=== PATIENT | male | born 1990 ===

== ENCOUNTER 2024-10-20 08:23 | Inpatient (IN) | payer BC ==
[2024-10-20 08:46] LABS: BASOPHILS ABSOLUTE AUTO 0.14 K/uL (0.00-0.10); BASOPHILS PERCENT AUTO 0.5 % (0.1-1.3); BICARBONATE,VENOUS 21.6 mmol/L; CARBOXYHEMOGLOBIN 2.3 % (0.0-1.6); EOSINOPHILS ABSOLUTE AUTO 0.06 K/uL (0.00-0.40); EOSINOPHILS PERCENT AUTO 0.2 % (0.0-5.4); HEMATOCRIT 39.9 % (38.4-49.7); HEMOGLOBIN 14.3 g/dL (12.9-16.9); IMMATURE GRAN ABSOLUTE AUTO 0.74 K/uL (0.00-0.23); IMMATURE GRAN PERCENT AUTO 2.9 % (0.0-0.7); LYMPHOCYTES PERCENT AUTO 3.9 % (11.4-47.7); MEAN CORPUSCULAR HEMOGLOBIN 33.2 pg (31.6-35.5); MEAN CORPUSCULAR HGB CONC 35.8 g/dL (31.6-35.5); MEAN CORPUSCULAR VOLUME 92.6 fL (81.4-99.0); METHEMOGLOBIN 0.7 %; MONOCYTES ABSOLUTE AUTO 1.84 K/uL (0.20-0.90); MONOCYTES PERCENT AUTO 7.2 % (3.3-12.6); NEUTROPHILS ABSOLUTE AUTO 21.92 K/uL (1.0-7.6); NEUTROPHILS PERCENT AUTO 85.3 % (40.0-78.1); O2 SATURATION VENOUS 81.4; PCO2 VENOUS 31.7 mm/Hg; PH,VENOUS 7.449 (7.350-7.450); PLATELET COUNT,PLT 206 K/uL (130-375); PO2 VENOUS 50.1 mm/Hg; RED BLOOD CELL COUNT 4.31 M/uL (4.14-5.76); TOTAL HEMOGLOBIN 14.9 g/dL (13.5-18.0); WHITE BLOOD CELL COUNT,WBC 25.7 K/uL (3.2-11.0)
[2024-10-20] MEDS: Midazolam 1 MG/ML 2 ML SDV IVPUSH ONE (08:46)
[2024-10-20 09:16] LABS: ALANINE AMINOTRANSFERASE,ALT 144 U/L (12-78); ALKALINE PHOSPHATASE 146 U/L (46-116); ASPARTATE AMNIOTRANSFERASE,AST 152 U/L (15-37); BILIRUBIN TOTAL 1.8 mg/dL (0.2-1.0); BLOOD UREA NITROGEN,BUN 19 mg/dL (7-18); CALCIUM 9.7 mg/dL (8.5-10.1); CARBON DIOXIDE,CO2 23 mmol/L (21-32); CHLORIDE,CL 88 mmol/L (100-108); CREATININE 1.4 mg/dL (0.8-1.3); EST CRCL DRUG DOSING (CG) 67.72 mL/min; ESTIMATED GFR 68 mL/min (>60); GLUCOSE RANDOM 138 mg/dL (74-106); POTASSIUM,K 3.1 mmol/L (3.6-5.2); PROTEIN TOTAL,TP 8.2 g/dL (6.4-8.2); SODIUM,NA 129 mmol/L (140-148); TROPONIN I HIGH SENSITIVITY 7.3 pg/mL (<=60.3)
[2024-10-20 09:19] LABS: ANION GAP 21.1 mmol/L (5.0-14.0)
[2024-10-20 09:21] LABS: MAGNESIUM 1.8 mg/dL (1.8-2.4); TSH ULTRASENSITIVE 1.652 uIU/mL (0.358-3.740)
[2024-10-20] MEDS ORDERED: MVI, Adult with Vitamin K 10 ML, Thiamine 100 MG, Folic Acid 1 MG, Magnesium Sulf 1 GM/... IV SCH (09:30)
[2024-10-20] MEDS: LORazepam 2 MG/ML SDV IVPUSH ONE ×2 (09:55→12:29)
[2024-10-20] MEDS: MVI, Adult with Vitamin K 10 ML, Thiamine 100 MG, Folic Acid 1 MG, Magnesium Sulf 1 GM/... IV ONE (09:55)
[2024-10-20 11:47] LABS: APPEARANCE,URINE SLIGHTLY CLOUDY (CLEAR); BILIRUBIN,URINE NEGATIVE (NEGATIVE); COLOR,URINE YELLOW (YELLOW); GLUCOSE,URINE NEGATIVE (NEGATIVE); KETONES,URINE NEGATIVE (NEGATIVE); LEUKOCYTE ESTERASE,URINE NEGATIVE (NEGATIVE); NITRITE,URINE NEGATIVE (NEGATIVE); OCCULT BLOOD,URINE NEGATIVE (NEGATIVE); PH,URINE 5.5 (5.0-8.0); PROTEIN,URINE 100 mg/dL (NEGATIVE); UROBILINOGEN,URINE 0.2 EU/dL (0.2-1.0)
[2024-10-20 12:00] LABS: AMPHETAMINES SCREEN, URINE NEGATIVE (NEGATIVE); BARBITURATE SCREEN,URINE NEGATIVE (NEGATIVE); BENZODIAZEPINES SCREEN,URINE NEGATIVE (NEGATIVE); METHADONE SCREEN, URINE NEGATIVE (NEGATIVE); METHAMPHETAMINES SCREEN, URINE NEGATIVE (NEGATIVE); OXYCODONE SCREEN,URINE NEGATIVE (NEGATIVE); PROPOXYPHENE SCREEN,URINE NEGATIVE (NEGATIVE); THC SCREEN,URINE 50 NG/ML NEGATIVE (NEGATIVE)
[2024-10-20 12:01] LABS: AMORPHOUS SEDIMENT,URINE MANY; BACTERIA,URINE FEW; EPITHELIAL CELLS,URINE NOT SEEN; MUCUS,URINE MODERATE; RBC,URINE 0-5 (0-5)
[2024-10-20 12:46] LABS: CREATININE 0.9 mg/dL (0.8-1.3); EST CRCL DRUG DOSING (CG) 105.35 mL/min; POTASSIUM,K 3.1 mmol/L (3.6-5.2)
[2024-10-20 12:47] LABS: ANION GAP 18.1 mmol/L (5.0-14.0)
[2024-10-20] MEDS: Potassium Chloride 10 MEQ Cap.ER PO ONE (13:09)
[2024-10-20] MEDS ORDERED: Ondansetron 4 MG/2 ML SDV IV PRN (14:48)
[2024-10-20] MEDS ORDERED: Sennosides/Docusate Sodium 50-8.6 MG Tab PO PRN (14:48)
[2024-10-20] MEDS ORDERED: Ondansetron 4 MG Tab.DIS PO PRN (14:48)
[2024-10-20] MEDS ORDERED: Magnesium Hydroxide 400 MG/5 ML Susp 30 ML Cup PO PRN (14:48)
[2024-10-20] MEDS: LORazepam 2 MG/ML SDV IV SCH (14:55)
[2024-10-20] MEDS: LORazepam 1 MG Tab PO SCH (14:55)
[2024-10-20] MEDS: Sodium Chloride 0.9% 1,000 ML IV SCH (15:17)
[2024-10-20] MEDS: Thiamine 100 MG in Sodium Chloride 0.9% 100 ML IV ONE (15:43)
[2024-10-20] MEDS: Nicotine 21 MG/24 Hr Patch TRDERM PRN (15:44)
[2024-10-20] MEDS: Potassium Chloride 20 MEQ Tab.ER PO ONE (15:45)
[2024-10-20] MEDS ORDERED: Thiamine 100 MG in Sodium Chloride 0.9% 50 ML IV ONE (16:00)
[2024-10-20] MEDS: PHENobarbitaL sodium 260 MG in Sodium Chloride 0.9% 100 ML IV ONE (16:02)
[2024-10-20] MEDS: Gabapentin 100 MG Cap PO SCH (16:06)
[2024-10-20] MEDS: Haloperidol Lactate 5 MG/ML SDV IVPUSH ONE (16:22)
[2024-10-20] MEDS: Haloperidol Lactate 5 MG/ML SDV ONE (16:54)
[2024-10-20] MEDS: PHENobarbital Sodium 65 MG/ML SDV IVPUSH PRN (19:38)
[2024-10-20] MEDS: Melatonin 3 MG Tab PO SCH (22:00)
[2024-10-20] MEDS: Haloperidol Lactate 5 MG/ML SDV IVPUSH PRN (22:24)
[2024-10-21] MEDS ORDERED: Naloxone 0.4 MG/ML SDV IVPUSH PRN (04:18)
[2024-10-21] MEDS ORDERED: Haloperidol Lactate 5 MG/ML SDV IVPUSH PRN (04:19)
[2024-10-21] MEDS: fentaNYL 50 MCG/ML SDV IVPUSH PRN ×2 (04:25→20:25)
[2024-10-21 05:10] LABS: HEMATOCRIT 35.5 % (38.4-49.7); MEAN CORPUSCULAR HEMOGLOBIN 33.1 pg (31.6-35.5); MEAN CORPUSCULAR HGB CONC 33.8 g/dL (31.6-35.5); MEAN CORPUSCULAR VOLUME 97.8 fL (81.4-99.0); RED BLOOD CELL COUNT 3.63 M/uL (4.14-5.76); WHITE BLOOD CELL COUNT,WBC 17.9 K/uL (3.2-11.0)
[2024-10-21 05:22] LABS: PROTHROMBIN TIME 10.4 sec (9.2-10.6)
[2024-10-21 05:26] LABS: A/G RATIO 0.8 (1.2-2.2); ALANINE AMINOTRANSFERASE,ALT 107 U/L (12-78); ALKALINE PHOSPHATASE 125 U/L (46-116); ASPARTATE AMNIOTRANSFERASE,AST 102 U/L (15-37); BLOOD UREA NITROGEN,BUN 15 mg/dL (7-18); CALCIUM 8.3 mg/dL (8.5-10.1); CARBON DIOXIDE,CO2 22 mmol/L (21-32); CHLORIDE,CL 99 mmol/L (100-108); CREATININE 0.8 mg/dL (0.8-1.3); EST CRCL DRUG DOSING (CG) 118.52 mL/min; ESTIMATED GFR 120 mL/min (>60); GLUCOSE RANDOM 102 mg/dL (74-106); POTASSIUM,K 3.4 mmol/L (3.6-5.2); PROTEIN TOTAL,TP 6.9 g/dL (6.4-8.2); SODIUM,NA 137 mmol/L (140-148)
[2024-10-21 05:28] LABS: ANION GAP 19.4 mmol/L (5.0-14.0)
[2024-10-21] MEDS ORDERED: Heparin Sodium 5,000 Units/ML Vial ONE (06:15)
[2024-10-21] MEDS: propofoL 1,000 MG/100 ML 100 ML IV SCH (06:43)
[2024-10-21] MEDS: Heparin Sodium 5,000 UNITS in Sodium Chloride 0.9% 500 ML IV SCH (06:50)
[2024-10-21] MEDS: Midazolam 1 MG/ML 2 ML SDV IVPUSH PRN ×2 (07:03→22:16)
[2024-10-21] MEDS ORDERED: Pantoprazole 40 MG Tab.CR PO SCH (07:30)
[2024-10-21] MEDS ORDERED: Propofol 200 MG/20 ML SDV ONE (07:40)
[2024-10-21] MEDS ORDERED: Succinylcholine 200 MG/10 ML MDV ONE (07:40)
[2024-10-21 08:03] LABS: BASE EXCESS ARTERIAL -3.3 mm/L; BICARBONATE,ARTERIAL 20.1 mmol/L (22.0-26.0); METHEMOGLOBIN 0.7 %; O2 SATURATION ARTERIAL 99.1 % (95.0-98.0); OXYHEMOGLOBIN 96.4 %; PCO2 ARTERIAL 32.4 mmHg (35.0-42.0); TOTAL HEMOGLOBIN 12.1 g/dL (13.5-18.0)
[2024-10-21] MEDS: propofoL 1,000 MG/100 ML 100 ML ONE (08:15)
[2024-10-21] MEDS: Thiamine 200 MG/2 ML MDV IVPUSH SCH (08:54)
[2024-10-21] MEDS: Pantoprazole 40 MG Vial IVPUSH SCH (08:54)
[2024-10-21] MEDS: Dextrose 5%-0.9% NaCl with KCl 1,000 ML IV SCH (09:00)
[2024-10-21] MEDS ORDERED: Folic Acid 1 MG Tab PO SCH (09:00)
[2024-10-21] MEDS ORDERED: Metoprolol Succinate 25 MG Tab.ER PO SCH (09:00)
[2024-10-21] MEDS ORDERED: Thiamine 100 MG Tab PO SCH (09:00)
[2024-10-22 04:20] LABS: BASE EXCESS ARTERIAL -0.2 mm/L; BICARBONATE,ARTERIAL 22.1 mmol/L (22.0-26.0); CARBOXYHEMOGLOBIN 1.8 % (0.0-1.6); METHEMOGLOBIN 0.9 %; O2 SATURATION ARTERIAL 94.8 % (95.0-98.0); OXYHEMOGLOBIN 92.2 %; PCO2 ARTERIAL 29.6 mmHg (35.0-42.0); TOTAL HEMOGLOBIN 11.6 g/dL (13.5-18.0)
[2024-10-22 04:22] LABS: HEMATOCRIT 33.2 % (38.4-49.7); HEMOGLOBIN 10.9 g/dL (12.9-16.9); MEAN CORPUSCULAR HEMOGLOBIN 32.3 pg (31.6-35.5); MEAN CORPUSCULAR HGB CONC 32.8 g/dL (31.6-35.5); MEAN CORPUSCULAR VOLUME 98.5 fL (81.4-99.0); RED BLOOD CELL COUNT 3.37 M/uL (4.14-5.76)
[2024-10-22] MEDS: Doxycycline 100 MG in Sodium Chloride 0.9% 100 ML IV SCH (04:29)
[2024-10-22 04:44] LABS: A/G RATIO 0.6 (1.2-2.2); ALANINE AMINOTRANSFERASE,ALT 76 U/L (12-78); ALBUMIN 2.5 g/dL (3.4-5.0); ALKALINE PHOSPHATASE 132 U/L (46-116); ASPARTATE AMNIOTRANSFERASE,AST 66 U/L (15-37); BILIRUBIN TOTAL 0.8 mg/dL (0.2-1.0); BLOOD UREA NITROGEN,BUN 9 mg/dL (7-18); CALCIUM 8.2 mg/dL (8.5-10.1); CARBON DIOXIDE,CO2 22 mmol/L (21-32); CHLORIDE,CL 105 mmol/L (100-108); CREATININE 0.7 mg/dL (0.8-1.3); EST CRCL DRUG DOSING (CG) 136.14 mL/min; ESTIMATED GFR 125 mL/min (>60); GLUCOSE RANDOM 154 mg/dL (74-106); MAGNESIUM 1.6 mg/dL (1.8-2.4); POTASSIUM,K 3.3 mmol/L (3.6-5.2); PROTEIN TOTAL,TP 6.4 g/dL (6.4-8.2); SODIUM,NA 140 mmol/L (140-148)
[2024-10-22 04:47] LABS: ANION GAP 16.3 mmol/L (5.0-14.0)
[2024-10-22] MEDS: Ketorolac 30 MG/ML SDV IVPUSH PRN (06:26)
[2024-10-22] MEDS: Potassium Chloride 10 MEQ in Premix Bag 1 BAG IV SCH ×2 (08:44→16:45)
[2024-10-22] MEDS: Magnesium Sulfate 2 GM/50 mL 2 GM in Premix Bag 1 BAG IV SCH (09:55)
[2024-10-22] MEDS: LORazepam 2 MG/ML SDV IVPUSH PRN (12:01)
[2024-10-22] MEDS: fentaNYL 50 MCG/ML SDV IVPUSH PRN (12:50)
[2024-10-22] MEDS: Sodium Chloride 0.9% 1,000 ML IV SCH (15:22)
[2024-10-22 15:59] LABS: CARBOXYHEMOGLOBIN 1.6 % (0.0-1.6); METHEMOGLOBIN 0.6 %; O2 SATURATION ARTERIAL 98.2 % (95.0-98.0); PCO2 ARTERIAL 31.3 mmHg (35.0-42.0); PO2 ARTERIAL 95.6 mmHg (75.0-100.0); TOTAL HEMOGLOBIN 10.9 g/dL (13.5-18.0)
[2024-10-23 05:18] LABS: HEMATOCRIT 34.5 % (38.4-49.7); HEMOGLOBIN 11.3 g/dL (12.9-16.9); MEAN CORPUSCULAR HEMOGLOBIN 32.7 pg (31.6-35.5); MEAN CORPUSCULAR HGB CONC 32.8 g/dL (31.6-35.5); MEAN CORPUSCULAR VOLUME 99.7 fL (81.4-99.0); RED BLOOD CELL COUNT 3.46 M/uL (4.14-5.76); WHITE BLOOD CELL COUNT,WBC 17.9 K/uL (3.2-11.0)
[2024-10-23 05:19] LABS: BASE EXCESS ARTERIAL -4.8 mm/L; BICARBONATE,ARTERIAL 18.2 mmol/L (22.0-26.0); CARBOXYHEMOGLOBIN 1.9 % (0.0-1.6); METHEMOGLOBIN 0.8 %; OXYHEMOGLOBIN 93.4 %; PCO2 ARTERIAL 28.7 mmHg (35.0-42.0); TOTAL HEMOGLOBIN 11.8 g/dL (13.5-18.0)
[2024-10-23 05:47] LABS: A/G RATIO 0.5 (1.2-2.2); ALANINE AMINOTRANSFERASE,ALT 85 U/L (12-78); ALBUMIN 2.2 g/dL (3.4-5.0); ALKALINE PHOSPHATASE 158 U/L (46-116); ASPARTATE AMNIOTRANSFERASE,AST 97 U/L (15-37); BILIRUBIN TOTAL 1.2 mg/dL (0.2-1.0); BLOOD UREA NITROGEN,BUN 8 mg/dL (7-18); CARBON DIOXIDE,CO2 19 mmol/L (21-32); CHLORIDE,CL 108 mmol/L (100-108); CREATININE 0.6 mg/dL (0.8-1.3); EST CRCL DRUG DOSING (CG) 158.83 mL/min; ESTIMATED GFR 131 mL/min (>60); GLUCOSE RANDOM 136 mg/dL (74-106); PROTEIN TOTAL,TP 6.3 g/dL (6.4-8.2); SODIUM,NA 141 mmol/L (140-148)
[2024-10-23] MEDS: Furosemide 40 MG/4 ML VIAL IVPUSH ONE (09:36)
[2024-10-23] MEDS: Dextrose 5%-0.9% NaCl with KCl 1,000 ML IV SCH (15:20)
[2024-10-23 15:25] LABS: BASE EXCESS ARTERIAL -3.7 mm/L; BICARBONATE,ARTERIAL 19.2 mmol/L (22.0-26.0); CARBOXYHEMOGLOBIN 1.8 % (0.0-1.6); METHEMOGLOBIN 0.4 %; O2 SATURATION ARTERIAL 97.9 % (95.0-98.0); OXYHEMOGLOBIN 95.7 %; PCO2 ARTERIAL 29.2 mmHg (35.0-42.0); PO2 ARTERIAL 93.8 mmHg (75.0-100.0)
[2024-10-23] MEDS: Potassium Chloride 10 MEQ in Premix Bag 1 BAG IV SCH (16:49)
[2024-10-23] MEDS: Heparin Sodium 5,000 UNITS in Sodium Chloride 0.9% 500 ML IV SCH (19:11)
[2024-10-24 05:37] LABS: BASE EXCESS ARTERIAL -4.3 mm/L; METHEMOGLOBIN 0.8 %; O2 SATURATION ARTERIAL 98.2 % (95.0-98.0); OXYHEMOGLOBIN 95.5 %; PCO2 ARTERIAL 30.5 mmHg (35.0-42.0); PO2 ARTERIAL 99.5 mmHg (75.0-100.0); TOTAL HEMOGLOBIN 10.9 g/dL (13.5-18.0)
[2024-10-24 05:38] LABS: HEMATOCRIT 32.1 % (38.4-49.7); HEMOGLOBIN 10.4 g/dL (12.9-16.9); MEAN CORPUSCULAR HEMOGLOBIN 32.4 pg (31.6-35.5); MEAN CORPUSCULAR HGB CONC 32.4 g/dL (31.6-35.5); RED BLOOD CELL COUNT 3.21 M/uL (4.14-5.76); WHITE BLOOD CELL COUNT,WBC 16.3 K/uL (3.2-11.0)
[2024-10-24 06:02] LABS: A/G RATIO 0.5 (1.2-2.2); ALANINE AMINOTRANSFERASE,ALT 74 U/L (12-78); ALBUMIN 1.9 g/dL (3.4-5.0); ALKALINE PHOSPHATASE 155 U/L (46-116); ASPARTATE AMNIOTRANSFERASE,AST 78 U/L (15-37); BILIRUBIN TOTAL 0.7 mg/dL (0.2-1.0); BLOOD UREA NITROGEN,BUN 9 mg/dL (7-18); CALCIUM 8.1 mg/dL (8.5-10.1); CARBON DIOXIDE,CO2 19 mmol/L (21-32); CHLORIDE,CL 110 mmol/L (100-108); CREATININE 0.6 mg/dL (0.8-1.3); EST CRCL DRUG DOSING (CG) 158.83 mL/min; ESTIMATED GFR 131 mL/min (>60); GLUCOSE RANDOM 99 mg/dL (74-106); POTASSIUM,K 3.6 mmol/L (3.6-5.2); PROTEIN TOTAL,TP 5.9 g/dL (6.4-8.2); SODIUM,NA 142 mmol/L (140-148)
[2024-10-24 06:03] LABS: ANION GAP 16.6 mmol/L (5.0-14.0)
[2024-10-24] MEDS: Potassium Chloride 10 MEQ in Premix Bag 1 BAG IV SCH (08:24)
[2024-10-24] MEDS: Furosemide 20 MG/2 ML VIAL IVPUSH ONE (13:40)
[2024-10-24] MEDS: Ampicillin/Sulbactam Na 1.5 GM in Sodium Chloride 0.9% 50 ML IV SCH (14:09)
[2024-10-24 17:20] LABS: ANION GAP 11.7 mmol/L (5.0-14.0); CALCIUM 8.7 mg/dL (8.5-10.1); CREATININE 0.5 mg/dL (0.8-1.3); EST CRCL DRUG DOSING (CG) 190.59 mL/min; POTASSIUM,K 3.6 mmol/L (3.6-5.2)
[2024-10-24] MEDS: Metoprolol Tartrate 25 MG Tab NGTUBE SCH (20:31)
[2024-10-25 05:51] LABS: BASE EXCESS ARTERIAL -1.7 mm/L; BICARBONATE,ARTERIAL 21.2 mmol/L (22.0-26.0); CARBOXYHEMOGLOBIN 1.8 % (0.0-1.6); METHEMOGLOBIN 0.8 %; O2 SATURATION ARTERIAL 97.7 % (95.0-98.0); OXYHEMOGLOBIN 95.2 %; PCO2 ARTERIAL 31.5 mmHg (35.0-42.0); PO2 ARTERIAL 94.1 mmHg (75.0-100.0); TOTAL HEMOGLOBIN 11.5 g/dL (13.5-18.0)
[2024-10-25 05:55] LABS: HEMATOCRIT 32.5 % (38.4-49.7); HEMOGLOBIN 10.9 g/dL (12.9-16.9); MEAN CORPUSCULAR HEMOGLOBIN 32.6 pg (31.6-35.5); MEAN CORPUSCULAR HGB CONC 33.5 g/dL (31.6-35.5); MEAN CORPUSCULAR VOLUME 97.3 fL (81.4-99.0); RED BLOOD CELL COUNT 3.34 M/uL (4.14-5.76); WHITE BLOOD CELL COUNT,WBC 14.6 K/uL (3.2-11.0)
[2024-10-25 06:16] LABS: A/G RATIO 0.5 (1.2-2.2); ALANINE AMINOTRANSFERASE,ALT 91 U/L (12-78); ALBUMIN 1.9 g/dL (3.4-5.0); ALKALINE PHOSPHATASE 219 U/L (46-116); ASPARTATE AMNIOTRANSFERASE,AST 125 U/L (15-37); BILIRUBIN TOTAL 0.7 mg/dL (0.2-1.0); BLOOD UREA NITROGEN,BUN 8 mg/dL (7-18); CALCIUM 8.6 mg/dL (8.5-10.1); CARBON DIOXIDE,CO2 22 mmol/L (21-32); CHLORIDE,CL 107 mmol/L (100-108); CREATINE KINASE,CK 69 U/L (39-308); CREATININE 0.5 mg/dL (0.8-1.3); EST CRCL DRUG DOSING (CG) 190.59 mL/min; ESTIMATED GFR 138 mL/min (>60); GLUCOSE RANDOM 144 mg/dL (74-106); MAGNESIUM 1.2 mg/dL (1.8-2.4); POTASSIUM,K 3.5 mmol/L (3.6-5.2); PROTEIN TOTAL,TP 6.1 g/dL (6.4-8.2); SODIUM,NA 141 mmol/L (140-148)
[2024-10-25 06:18] LABS: ANION GAP 15.5 mmol/L (5.0-14.0)
[2024-10-25] MEDS: DULoxetine 20 MG Cap PO SCH (08:17)
[2024-10-25] MEDS ORDERED: Furosemide 40 MG/4 ML VIAL IVPUSH ONE (08:19)
[2024-10-25] MEDS: Magnesium Sulfate 2 GM/50 mL 2 GM in Premix Bag 1 BAG IV SCH (09:07)
[2024-10-25] MEDS: Furosemide 20 MG/2 ML VIAL IVPUSH ONE ×2 (09:07→17:41)
[2024-10-25] MEDS: Magnesium Oxide 400 MG Tab NGTUBE SCH (09:07)
[2024-10-25] MEDS: Potassium Chloride 10 MEQ in Premix Bag 1 BAG IV SCH ×2 (09:36→17:42)
[2024-10-25 16:54] LABS: BASE EXCESS ARTERIAL -0.4 mm/L; BICARBONATE,ARTERIAL 23.2 mmol/L (22.0-26.0); CARBOXYHEMOGLOBIN 1.4 % (0.0-1.6); METHEMOGLOBIN 0.7 %; O2 SATURATION ARTERIAL 95.3 % (95.0-98.0); OXYHEMOGLOBIN 93.3 %; PCO2 ARTERIAL 36.2 mmHg (35.0-42.0); PO2 ARTERIAL 79.8 mmHg (75.0-100.0); TOTAL HEMOGLOBIN 11.5 g/dL (13.5-18.0)
[2024-10-25 17:12] LABS: POTASSIUM,K 3.6 mmol/L (3.6-5.2)
[2024-10-25 17:13] LABS: ANION GAP 12.7 mmol/L (5.0-14.0); CALCIUM 9.2 mg/dL (8.5-10.1); CREATININE 0.4 mg/dL (0.8-1.3); EST CRCL DRUG DOSING (CG) 238.24 mL/min
[2024-10-26 05:59] LABS: HEMATOCRIT 33.2 % (38.4-49.7); HEMOGLOBIN 11.1 g/dL (12.9-16.9); MEAN CORPUSCULAR HEMOGLOBIN 32.6 pg (31.6-35.5); MEAN CORPUSCULAR HGB CONC 33.4 g/dL (31.6-35.5); MEAN CORPUSCULAR VOLUME 97.4 fL (81.4-99.0); RED BLOOD CELL COUNT 3.41 M/uL (4.14-5.76); WHITE BLOOD CELL COUNT,WBC 18.9 K/uL (3.2-11.0)
[2024-10-26 06:00] LABS: BASE EXCESS ARTERIAL 0.2 mm/L; BICARBONATE,ARTERIAL 23.1 mmol/L (22.0-26.0); CARBOXYHEMOGLOBIN 2.8 % (0.0-1.6); METHEMOGLOBIN 0.8 %; O2 SATURATION ARTERIAL 98.6 % (95.0-98.0); OXYHEMOGLOBIN 95.1 %; TOTAL HEMOGLOBIN 11.5 g/dL (13.5-18.0)
[2024-10-26 06:22] LABS: A/G RATIO 0.5 (1.2-2.2); ALANINE AMINOTRANSFERASE,ALT 94 U/L (12-78); ALBUMIN 1.9 g/dL (3.4-5.0); ALKALINE PHOSPHATASE 223 U/L (46-116); ASPARTATE AMNIOTRANSFERASE,AST 102 U/L (15-37); BILIRUBIN TOTAL 0.6 mg/dL (0.2-1.0); BLOOD UREA NITROGEN,BUN 9 mg/dL (7-18); CALCIUM 8.8 mg/dL (8.5-10.1); CARBON DIOXIDE,CO2 23 mmol/L (21-32); CHLORIDE,CL 104 mmol/L (100-108); CREATININE 0.5 mg/dL (0.8-1.3); EST CRCL DRUG DOSING (CG) 190.59 mL/min; ESTIMATED GFR 138 mL/min (>60); GLUCOSE RANDOM 147 mg/dL (74-106); MAGNESIUM 1.6 mg/dL (1.8-2.4); SODIUM,NA 138 mmol/L (140-148)
[2024-10-26] MEDS: Furosemide 20 MG/2 ML VIAL IVPUSH ONE ×2 (08:44→20:11)
[2024-10-26] MEDS: Magnesium Sulfate 2 GM/50 mL 2 GM in Premix Bag 1 BAG IV SCH (09:10)
[2024-10-26] MEDS: VANCOmycin 2 GM in Sodium Chloride 0.9% 500 ML IV ONE (10:32)
[2024-10-26 16:56] LABS: BASE EXCESS ARTERIAL 1.4 mm/L; BICARBONATE,ARTERIAL 24.1 mmol/L (22.0-26.0); CARBOXYHEMOGLOBIN 1.4 % (0.0-1.6); METHEMOGLOBIN 0.7 %; O2 SATURATION ARTERIAL 94.9 % (95.0-98.0); OXYHEMOGLOBIN 92.9 %; PCO2 ARTERIAL 32.4 mmHg (35.0-42.0); PO2 ARTERIAL 73.3 mmHg (75.0-100.0); TOTAL HEMOGLOBIN 11.5 g/dL (13.5-18.0)
[2024-10-26 17:12] LABS: CREATININE 0.5 mg/dL (0.8-1.3); EST CRCL DRUG DOSING (CG) 190.59 mL/min; POTASSIUM,K 3.9 mmol/L (3.6-5.2)
[2024-10-26 17:13] LABS: ANION GAP 14.9 mmol/L (5.0-14.0)
[2024-10-26] MEDS: Heparin Sodium 5,000 UNITS in Sodium Chloride 0.9% 500 ML IV SCH (17:46)
[2024-10-26] MEDS: VANCOmycin 1.25 GM in Sodium Chloride 0.9% 250 ML IV SCH (17:46)
[2024-10-26] MEDS ORDERED: Furosemide 40 MG/4 ML VIAL IVPUSH ONE (20:00)
[2024-10-27 05:43] LABS: HEMATOCRIT 31.6 % (38.4-49.7); HEMOGLOBIN 10.6 g/dL (12.9-16.9); MEAN CORPUSCULAR HEMOGLOBIN 32.5 pg (31.6-35.5); MEAN CORPUSCULAR HGB CONC 33.5 g/dL (31.6-35.5); MEAN CORPUSCULAR VOLUME 96.9 fL (81.4-99.0); RED BLOOD CELL COUNT 3.26 M/uL (4.14-5.76); WHITE BLOOD CELL COUNT,WBC 20.6 K/uL (3.2-11.0)
[2024-10-27 05:44] LABS: BASE EXCESS ARTERIAL 3.3 mm/L; BICARBONATE,ARTERIAL 25.8 mmol/L (22.0-26.0); CARBOXYHEMOGLOBIN 2.4 % (0.0-1.6); METHEMOGLOBIN 0.8 %; O2 SATURATION ARTERIAL 97.1 % (95.0-98.0); PCO2 ARTERIAL 32.9 mmHg (35.0-42.0); PO2 ARTERIAL 86.9 mmHg (75.0-100.0); TOTAL HEMOGLOBIN 11.2 g/dL (13.5-18.0)
[2024-10-27 06:04] LABS: A/G RATIO 0.5 (1.2-2.2); ALANINE AMINOTRANSFERASE,ALT 70 U/L (12-78); ALBUMIN 1.9 g/dL (3.4-5.0); ALKALINE PHOSPHATASE 219 U/L (46-116); ANION GAP 12.3 mmol/L (5.0-14.0); ASPARTATE AMNIOTRANSFERASE,AST 53 U/L (15-37); BILIRUBIN TOTAL 0.4 mg/dL (0.2-1.0); BLOOD UREA NITROGEN,BUN 8 mg/dL (7-18); CALCIUM 8.8 mg/dL (8.5-10.1); CARBON DIOXIDE,CO2 26 mmol/L (21-32); CHLORIDE,CL 103 mmol/L (100-108); CREATININE 0.5 mg/dL (0.8-1.3); EST CRCL DRUG DOSING (CG) 190.59 mL/min; ESTIMATED GFR 138 mL/min (>60); GLUCOSE RANDOM 157 mg/dL (74-106); MAGNESIUM 1.4 mg/dL (1.8-2.4); POTASSIUM,K 3.7 mmol/L (3.6-5.2); PROTEIN TOTAL,TP 6.1 g/dL (6.4-8.2); SODIUM,NA 141 mmol/L (140-148); VANCOMYCIN RANDOM 26.1 ug/mL (0.0-50.0)
[2024-10-27] MEDS: Magnesium Sulfate 2 GM/50 mL 2 GM in Premix Bag 1 BAG IV SCH (08:53)
[2024-10-27] MEDS ORDERED: Sodium Chloride 0.9% 10 ML Syringe IV PRN (09:36)
[2024-10-27] MEDS: Furosemide 20 MG/2 ML VIAL IVPUSH ONE (09:52)
[2024-10-27] MEDS: Sodium Chloride 0.9% 10 ML Syringe FLUSH ONE (10:23)
[2024-10-27] MEDS: LORazepam 1 MG Tab NGTUBE PRN (12:43)
[2024-10-27] MEDS: Iopamidol 755 Mg/ML 100 ML Bottle IV SCH (12:55)
[2024-10-27] MEDS: Sodium Chloride 0.9% 80 ML IV SCH (12:57)
[2024-10-27] MEDS: metroNIDAZOLE/Normal Saline 500 MG in Premix Bag 1 BAG IV SCH (14:58)
[2024-10-27] MEDS: Furosemide 40 MG/4 ML VIAL IVPUSH ONE (15:05)
[2024-10-27] MEDS: Levofloxacin/Dextrose 5%-Water 750 MG in Premix Bag 1 BAG IV SCH (16:40)
[2024-10-27] MEDS: Enoxaparin 40 MG/0.4 ML Syringe SUBCUT SCH (16:42)
[2024-10-27 17:01] LABS: BASE EXCESS ARTERIAL 5.8 mm/L; BICARBONATE,ARTERIAL 28.6 mmol/L (22.0-26.0); CARBOXYHEMOGLOBIN 2.1 % (0.0-1.6); METHEMOGLOBIN 0.6 %; O2 SATURATION ARTERIAL 97.2 % (95.0-98.0); OXYHEMOGLOBIN 94.6 %; PCO2 ARTERIAL 35.6 mmHg (35.0-42.0); PO2 ARTERIAL 89.5 mmHg (75.0-100.0); TOTAL HEMOGLOBIN 11.9 g/dL (13.5-18.0)
[2024-10-27 17:21] LABS: CALCIUM 9.3 mg/dL (8.5-10.1); CREATININE 0.5 mg/dL (0.8-1.3); EST CRCL DRUG DOSING (CG) 190.59 mL/min; POTASSIUM,K 3.5 mmol/L (3.6-5.2)
[2024-10-27 17:25] LABS: ANION GAP 14.5 mmol/L (5.0-14.0)
[2024-10-27] MEDS: Linezolid 600 MG/300 ML 600 MG in Premix Bag 1 BAG IV SCH (18:04)
[2024-10-28 05:56] LABS: BASE EXCESS ARTERIAL 4.7 mm/L; BICARBONATE,ARTERIAL 27.6 mmol/L (22.0-26.0); CARBOXYHEMOGLOBIN 1.9 % (0.0-1.6); METHEMOGLOBIN 0.7 %; O2 SATURATION ARTERIAL 96.1 % (95.0-98.0); OXYHEMOGLOBIN 93.6 %; PCO2 ARTERIAL 35.6 mmHg (35.0-42.0); PO2 ARTERIAL 83.3 mmHg (75.0-100.0); TOTAL HEMOGLOBIN 11.1 g/dL (13.5-18.0)
[2024-10-28 05:58] LABS: HEMATOCRIT 31.8 % (38.4-49.7); HEMOGLOBIN 10.6 g/dL (12.9-16.9); MEAN CORPUSCULAR HEMOGLOBIN 32.2 pg (31.6-35.5); MEAN CORPUSCULAR HGB CONC 33.3 g/dL (31.6-35.5); MEAN CORPUSCULAR VOLUME 96.7 fL (81.4-99.0); RED BLOOD CELL COUNT 3.29 M/uL (4.14-5.76)
[2024-10-28 06:18] LABS: A/G RATIO 0.5 (1.2-2.2); ALANINE AMINOTRANSFERASE,ALT 53 U/L (12-78); ALKALINE PHOSPHATASE 193 U/L (46-116); ASPARTATE AMNIOTRANSFERASE,AST 40 U/L (15-37); BILIRUBIN TOTAL 0.4 mg/dL (0.2-1.0); BLOOD UREA NITROGEN,BUN 9 mg/dL (7-18); CARBON DIOXIDE,CO2 29 mmol/L (21-32); CHLORIDE,CL 101 mmol/L (100-108); CREATININE 0.5 mg/dL (0.8-1.3); EST CRCL DRUG DOSING (CG) 190.59 mL/min; ESTIMATED GFR 138 mL/min (>60); GLUCOSE RANDOM 163 mg/dL (74-106); MAGNESIUM 1.6 mg/dL (1.8-2.4); POTASSIUM,K 3.8 mmol/L (3.6-5.2); PROTEIN TOTAL,TP 6.3 g/dL (6.4-8.2); SODIUM,NA 138 mmol/L (140-148)
[2024-10-28 06:25] LABS: ANION GAP 11.8 mmol/L (5.0-14.0)
[2024-10-28] MEDS: Thiamine 100 MG Tab NGTUBE SCH (08:12)
[2024-10-28] MEDS: Folic Acid 1 MG Tab NGTUBE SCH (08:12)
[2024-10-28] MEDS: Potassium Chloride 20 MEQ Tab.ER PO ONE (08:19)
[2024-10-28] MEDS ORDERED: Thiamine 200 MG/2 ML MDV IVPUSH SCH (09:00)
[2024-10-28] MEDS: Magnesium Sulfate 2 GM/50 mL 2 GM in Premix Bag 1 BAG IV SCH (09:23)
[2024-10-28 13:07] LABS: BASE EXCESS ARTERIAL 3.2 mm/L; BICARBONATE,ARTERIAL 25.9 mmol/L (22.0-26.0); METHEMOGLOBIN 0.7 %; OXYHEMOGLOBIN 95.4 %; PO2 ARTERIAL 99.4 mmHg (75.0-100.0); TOTAL HEMOGLOBIN 12.6 g/dL (13.5-18.0)
[2024-10-28] MEDS ORDERED: LORazepam 1 MG Tab NGTUBE PRN (13:33)
[2024-10-28] MEDS: Furosemide 40 MG/4 ML VIAL IVPUSH ONE (13:52)
[2024-10-28] MEDS ORDERED: LORazepam 1 MG Tab PO PRN (14:35)
[2024-10-28] MEDS: LORazepam 2 MG/ML SDV IVPUSH PRN ×2 (14:36→17:46)
[2024-10-28] MEDS: LORazepam 2 MG/ML SDV IVPUSH ONE (16:39)
[2024-10-28] MEDS: HYDROmorphone 1 MG/ML Syringe IVPUSH PRN (19:17)
[2024-10-28] MEDS: Metoprolol Tartrate 25 MG Tab PO SCH (20:07)
[2024-10-28] MEDS: Magnesium Oxide 400 MG Tab PO SCH (20:08)
[2024-10-28] MEDS: LORazepam 1 MG Tab PO PRN (20:13)
[2024-10-29] MEDS ORDERED: Haloperidol Lactate 5 MG/ML SDV IVPUSH PRN (00:22)
[2024-10-29] MEDS: Haloperidol Lactate 5 MG/ML SDV IVPUSH ONE (00:25)
[2024-10-29 05:48] LABS: HEMATOCRIT 36.5 % (38.4-49.7); HEMOGLOBIN 12.1 g/dL (12.9-16.9); MEAN CORPUSCULAR HEMOGLOBIN 32.5 pg (31.6-35.5); MEAN CORPUSCULAR HGB CONC 33.2 g/dL (31.6-35.5); MEAN CORPUSCULAR VOLUME 98.1 fL (81.4-99.0); RED BLOOD CELL COUNT 3.72 M/uL (4.14-5.76); WHITE BLOOD CELL COUNT,WBC 23.5 K/uL (3.2-11.0)
[2024-10-29 06:10] LABS: A/G RATIO 0.5 (1.2-2.2); ALANINE AMINOTRANSFERASE,ALT 59 U/L (12-78); ALBUMIN 2.4 g/dL (3.4-5.0); ALKALINE PHOSPHATASE 190 U/L (46-116); ANION GAP 8.9 mmol/L (5.0-14.0); ASPARTATE AMNIOTRANSFERASE,AST 83 U/L (15-37); BILIRUBIN TOTAL 0.6 mg/dL (0.2-1.0); BLOOD UREA NITROGEN,BUN 10 mg/dL (7-18); CALCIUM 9.8 mg/dL (8.5-10.1); CARBON DIOXIDE,CO2 31 mmol/L (21-32); CHLORIDE,CL 101 mmol/L (100-108); CREATININE 0.5 mg/dL (0.8-1.3); EST CRCL DRUG DOSING (CG) 190.59 mL/min; ESTIMATED GFR 138 mL/min (>60); GLUCOSE RANDOM 107 mg/dL (74-106); MAGNESIUM 1.6 mg/dL (1.8-2.4); POTASSIUM,K 3.7 mmol/L (3.6-5.2); PROTEIN TOTAL,TP 7.2 g/dL (6.4-8.2); SODIUM,NA 141 mmol/L (140-148)
[2024-10-29] MEDS: Sodium Chloride 0.9% 80 ML IV ONE (07:27)
[2024-10-29] MEDS: Sodium Chloride 0.9% 10 ML Syringe FLUSH PRN (07:27)
[2024-10-29] MEDS: Iopamidol 612 MG/ML 100 ML Bottle IV PRN (07:28)
[2024-10-29] MEDS: Folic Acid 1 MG Tab PO SCH (08:03)
[2024-10-29] MEDS: Thiamine 100 MG Tab PO SCH (08:03)
[2024-10-29] MEDS: Magnesium Sulfate 2 GM/50 mL 2 GM in Premix Bag 1 BAG IV SCH (09:33)
[2024-10-29 11:39] LABS: APPEARANCE,URINE CLEAR (CLEAR); BILIRUBIN,URINE NEGATIVE (NEGATIVE); COLOR,URINE YELLOW (YELLOW); GLUCOSE,URINE NEGATIVE (NEGATIVE); KETONES,URINE NEGATIVE (NEGATIVE); LEUKOCYTE ESTERASE,URINE NEGATIVE (NEGATIVE); NITRITE,URINE NEGATIVE (NEGATIVE); OCCULT BLOOD,URINE SMALL (NEGATIVE); PROTEIN,URINE NEGATIVE (NEGATIVE); UROBILINOGEN,URINE 0.2 EU/dL (0.2-1.0)
[2024-10-29 11:49] LABS: AMORPHOUS SEDIMENT,URINE NOT SEEN; BACTERIA,URINE FEW; EPITHELIAL CELLS,URINE RARE; MUCUS,URINE NOT SEEN; WBC,URINE 0-5 (0-5)
[2024-10-29] MEDS: Meropenem 1 GM in Sodium Chloride 0.9% 100 ML IV SCH (12:08)
[2024-10-29] MEDS: Pantoprazole 40 MG Tab.CR PO SCH (20:07)
[2024-10-29] MEDS: Melatonin 3 MG Tab PO SCH (21:09)
[2024-10-30 05:44] LABS: HEMATOCRIT 35.4 % (38.4-49.7); HEMOGLOBIN 11.7 g/dL (12.9-16.9); MEAN CORPUSCULAR HEMOGLOBIN 32.3 pg (31.6-35.5); MEAN CORPUSCULAR HGB CONC 33.1 g/dL (31.6-35.5); MEAN CORPUSCULAR VOLUME 97.8 fL (81.4-99.0); RED BLOOD CELL COUNT 3.62 M/uL (4.14-5.76); WHITE BLOOD CELL COUNT,WBC 20.3 K/uL (3.2-11.0)
[2024-10-30 06:00] LABS: CALCIUM 9.4 mg/dL (8.5-10.1); CREATININE 0.6 mg/dL (0.8-1.3); EST CRCL DRUG DOSING (CG) 158.83 mL/min; MAGNESIUM 1.4 mg/dL (1.8-2.4); POTASSIUM,K 3.7 mmol/L (3.6-5.2)
[2024-10-30 06:03] LABS: ANION GAP 10.7 mmol/L (5.0-14.0)
[2024-10-30] MEDS ORDERED: Pantoprazole 40 MG Tab.CR PO SCH (07:30)
[2024-10-30] MEDS: Magnesium Sulfate 2 GM/50 mL 2 GM in Premix Bag 1 BAG IV SCH (08:42)
[2024-10-30] MEDS: Acetaminophen 325 MG Tab PO PRN (22:07)
[2024-10-31] MEDS: diphenhydrAMINE 25 MG Cap PO ONE (01:43)
[2024-10-31 06:00] LABS: HEMOGLOBIN 11.5 g/dL (12.9-16.9); MEAN CORPUSCULAR HEMOGLOBIN 32.6 pg (31.6-35.5); MEAN CORPUSCULAR HGB CONC 33.8 g/dL (31.6-35.5); MEAN CORPUSCULAR VOLUME 96.3 fL (81.4-99.0); RED BLOOD CELL COUNT 3.53 M/uL (4.14-5.76); WHITE BLOOD CELL COUNT,WBC 18.9 K/uL (3.2-11.0)
[2024-10-31] MEDS: Magnesium Sulfate 2 GM/50 mL 2 GM in Premix Bag 1 BAG IV SCH (09:46)
== END 2024-10-31 10:20 | disposition home or self-care (01) | DRG 951 ==
LOC: JP.ED 08:23 → JP.ICU 14:20
PROVIDERS: ADMIT Internal Medicine; ATTEND Internal Medicine
PROC: 0BH17EZ Insertion of Endotracheal Airway into Trachea, Via Natural or Artificial Opening (ICD-10-PCS; principal; 2024-10-20)
PROC: 0DH67UZ Insertion of Feeding Device into Stomach, Via Natural or Artificial Opening (ICD-10-PCS; principal; 2024-10-20)
PROC: HZ2ZZZZ Detoxification Services for Substance Abuse Treatment (ICD-10-PCS; principal; 2024-10-20)
PROC: 5A1955Z Respiratory Ventilation, Greater than 96 Consecutive Hours (ICD-10-PCS; principal; 2024-10-20)
DX: F10.931 Alcohol use, unspecified with withdrawal delirium (principal); I10 Essential (primary) hypertension; K21.9 Gastro-esophageal reflux disease without esophagitis; F41.9 Anxiety disorder, unspecified; E86.0 Dehydration; R56.9 Unspecified convulsions; R74.8 Abnormal levels of other serum enzymes; E87.6 Hypokalemia; F17.220 Nicotine dependence, chewing tobacco, uncomplicated; K70.10 Alcoholic hepatitis without ascites; J69.0 Pneumonitis due to inhalation of food and vomit; E83.42 Hypomagnesemia; J96.01 Acute respiratory failure with hypoxia; K35.30 Acute appendicitis with localized peritonitis, without perforation or gangrene; Z86.16 Personal history of COVID-19; Z79.899 Other long term (current) drug therapy; Z90.49 Acquired absence of other specified parts of digestive tract
CPT/HCPCS: 31500; 36415; 36600; 43752; 51701; 51702; 70450; 70450-26; 71045; 71045-26; 71275; 71275-26; 74177; 74177-26; 80048; 80053; 80202; 80305-QW; 80307; 81001; 82550; 82803; 83735; 84132; 84443; 84478; 84484; 85025; 85027; 85610; 87040; 87070; 87077; 87086; 87088; 87186; 87205; 93005; 93010; 94002; 94003; 96365; 96366; 96375; 96376; 97162-GP; 97530-GP; 99223; 99232; 99233; 99239; 99284; 99285-25; A9270-GY; C1751; J0295; J0330; J0713; J1171; J1630; J1644; J1650; J1836; J1885; J1938; J1956; J2020; J2060; J2185; J2250; J2470; J2560; J2704; J3010; J3411; J3475; J3480; J3490; J7030; J7040; J7050; Q9967